=== PATIENT | female | born 1955 | race Caucasian/White ===

== ENCOUNTER 2025-02-01 10:56 | Inpatient (IN) | payer MEDICARE, MEDICAID ==
[2025-02-01 12:14] LABS: BASOPHILS ABSOLUTE AUTO 0.1 K/mm3 (0.0-0.2); BASOPHILS PERCENT AUTO 0.4 % (0.0-1.0); EOSINOPHILS ABSOLUTE AUTO 0.3 K/mm3 (0.0-0.4); EOSINOPHILS PERCENT AUTO 1.9 % (0.0-6.0); HEMATOCRIT 42.1 % (37.0-47.0); HEMOGLOBIN 13.6 gm/dl (12.0-16.0); IMMATURE GRAN ABSOLUTE AUTO 0.05 K/mm3 (0.00-0.05); IMMATURE GRAN PERCENT AUTO 0.4 % (0.0-0.4); LYMPHOCYTES ABSOLUTE AUTO 2.9 K/mm3 (1.0-4.8); LYMPHOCYTES PERCENT AUTO 20.5 % (24.0-44.0); MEAN CORPUSCULAR HGB CONC 32.3 g/dl (32.0-36.0); MEAN CORPUSCULAR VOLUME 92.9 fl (83.0-99.0); MEAN PLATELET VOLUME 10.7 fl (9.4-12.3); MONOCYTES ABSOLUTE AUTO 0.8 K/mm3 (0.0-0.8); MONOCYTES PERCENT AUTO 5.7 % (0.0-8.0); NEUTROPHILS PERCENT AUTO 71.1 % (41.0-71.0); PLATELET COUNT,PLT 212 K/mm3 (150-400); RED BLOOD CELL COUNT 4.53 M/mm3 (4.10-5.30); WHITE BLOOD CELL COUNT,WBC 13.97 K/mm3 (3.9-11.3)
[2025-02-01] MEDS: Ondansetron 4 MG/2 ML SDV IVPUSH ONE (12:43)
[2025-02-01 12:50] LABS: A/G RATIO 0.9 (1-2); ALBUMIN 3.5 g/dl (3.4-5.0); ANION GAP 13.8 (5-15); BILIRUBIN TOTAL 0.3 mg/dL (0.2-1.0); CALCIUM 10.3 mg/dL (8.5-10.1); EST CRCL DRUG DOSING (CG) 37.06 mL/min; POTASSIUM,K 3.8 mEq/L (3.5-5.1); PROTEIN TOTAL,TP 7.3 g/dl (6.4-8.2); TSH 3.013 uIU/mL (0.358-3.74)
[2025-02-01 14:14] LABS: SLIDE REVIEW ABNORMAL SMEAR
[2025-02-01] MEDS ORDERED: Albuterol/Ipratropium 3.0-0.5 MG/3 ML Neb Soln NEB PRN (16:29)
[2025-02-01] MEDS: Furosemide 40 MG/4 ML VIAL IVPUSH ONE (16:31)
[2025-02-01] MEDS ORDERED: Ondansetron 4 MG/2 ML SDV IV PRN (16:32)
[2025-02-01] MEDS ORDERED: Acetaminophen 325 MG Tab PO PRN (16:32)
[2025-02-01] MEDS ORDERED: LORazepam 1 MG Tab PO PRN (16:35)
[2025-02-01] MEDS ORDERED: 50% Dextrose in Water 50 ML Syringe IVPUSH PRN (16:36)
[2025-02-01 18:12] LABS: APPEARANCE,URINE SLT CLOUDY (Clear); BILIRUBIN,URINE 1+ (Negative); COLOR,URINE YELLOW (Yellow); GLUCOSE,URINE NEGATIVE (Negative); KETONES,URINE 1+ (Negative); LEUKOCYTE ESTERASE,URINE 1+ (Negative); NITRITE,URINE NEGATIVE (Negative); OCCULT BLOOD,URINE NEGATIVE (Negative); PROTEIN,URINE 2+ (Negative); UROBILINOGEN,URINE 0.2 (0.2-1.0)
[2025-02-01 18:18] LABS: BARBITURATE SCREEN,URINE NEGATIVE (CUTOFF=200); BENZODIAZEPINES SCREEN,URINE PRESUMPTIVE POSITIVE (CUTOFF=150); BUPRENORPHINE SCREEN,URINE NEGATIVE (CUTOFF=10); METHADONE SCREEN, URINE NEGATIVE (CUTOFF=200); METHAMPHETAMINES SCREEN, URINE NEGATIVE (CUTOFF=500); OXYCODONE SCREEN,URINE NEGATIVE (CUT0FF=100); THC SCREEN,URINE 20 NG/ML NEGATIVE (CUTOFF=50)
[2025-02-01 18:20] LABS: AMPHETAMINES SCREEN, URINE NEGATIVE (CUTOFF=500)
[2025-02-01] MEDS: Insulin Lispro 100 Unit/ML 3 ML KwikPen SUBCUT SCH (18:22)
[2025-02-01 18:35] LABS: RBC,URINE 0-5 /hpf (0-5); WBC,URINE 50-75 /hpf (0-5)
[2025-02-01 18:36] LABS: BACTERIA,URINE FEW /hpf (FEW); MUCUS,URINE FEW /hpf (FEW)
[2025-02-01] MEDS: Potassium Chloride 20 MEQ Tab.ER PO ONE (19:01)
[2025-02-01] MEDS ORDERED: Non-Formulary Medication 1 Each (Memantine Hcl/Donepezil Hcl [Namzaric 28 Mg-10 Mg Capsule PO SCH (21:00)
[2025-02-01] MEDS: Carboxymethylcellulose Sodium 1% Ophth Gel 15 ML Bottle EYEBOTH PRN (21:11)
[2025-02-01] MEDS: QUEtiapine 25 MG Tab PO SCH (21:11)
[2025-02-01] MEDS: LORazepam 2 MG/ML SDV IVPUSH PRN (22:28)
[2025-02-02 04:40] LABS: BASOPHILS ABSOLUTE AUTO 0.1 K/mm3 (0.0-0.2); BASOPHILS PERCENT AUTO 0.4 % (0.0-1.0); EOSINOPHILS ABSOLUTE AUTO 0.1 K/mm3 (0.0-0.4); EOSINOPHILS PERCENT AUTO 0.9 % (0.0-6.0); HEMATOCRIT 41.1 % (37.0-47.0); HEMOGLOBIN 13.3 gm/dl (12.0-16.0); IMMATURE GRAN ABSOLUTE AUTO 0.04 K/mm3 (0.00-0.05); IMMATURE GRAN PERCENT AUTO 0.3 % (0.0-0.4); LYMPHOCYTES ABSOLUTE AUTO 2.9 K/mm3 (1.0-4.8); LYMPHOCYTES PERCENT AUTO 19.9 % (24.0-44.0); MEAN CORPUSCULAR HEMOGLOBIN 29.9 pg (28.0-32.0); MEAN CORPUSCULAR HGB CONC 32.4 g/dl (32.0-36.0); MEAN CORPUSCULAR VOLUME 92.4 fl (83.0-99.0); MEAN PLATELET VOLUME 10.3 fl (9.4-12.3); MONOCYTES ABSOLUTE AUTO 0.8 K/mm3 (0.0-0.8); MONOCYTES PERCENT AUTO 5.6 % (0.0-8.0); NEUTROPHILS ABSOLUTE AUTO 10.5 K/mm3 (1.8-7.7); NEUTROPHILS PERCENT AUTO 72.9 % (41.0-71.0); PLATELET COUNT,PLT 323 K/mm3 (150-400); RED BLOOD CELL COUNT 4.45 M/mm3 (4.10-5.30); WHITE BLOOD CELL COUNT,WBC 14.34 K/mm3 (3.9-11.3)
[2025-02-02 05:06] LABS: A/G RATIO 0.8 (1-2); ALBUMIN 3.4 g/dl (3.4-5.0); ANION GAP 13.3 (5-15); BILIRUBIN TOTAL 0.3 mg/dL (0.2-1.0); BUN/CREATININE RATIO 16.7 (14-18); C-REACTIVE PROTEIN 2.33 mg/dL (<0.30); CREATININE 1.2 mg/dL (0.55-1.02); EST CRCL DRUG DOSING (CG) 30.89 mL/min; MAGNESIUM 1.4 mg/dL (1.8-2.4); PHOSPHORUS 4.3 mg/dL (2.6-4.7); POTASSIUM,K 3.3 mEq/L (3.5-5.1); PROTEIN TOTAL,TP 7.7 g/dl (6.4-8.2)
[2025-02-02 05:44] LABS: HEMOGLOBIN A1C 6.3 %
[2025-02-02] MEDS: Enoxaparin 40 MG/0.4 ML Syringe SUBCUT SCH (08:03)
[2025-02-02] MEDS: Potassium Chloride 10 MEQ in Premix Bag 1 BAG IV SCH (10:57)
[2025-02-02] MEDS: Magnesium Sulf/Wat 4 GM/50 mL 4 GM in Premix Bag 1 BAG IV ONE (10:57)
[2025-02-02] MEDS: Multivitamin Tab PO SCH (11:07)
[2025-02-02] MEDS: LORazepam 1 MG Tab PO SCH (20:59)
[2025-02-03 05:28] LABS: BASOPHILS ABSOLUTE AUTO 0.1 K/mm3 (0.0-0.2); BASOPHILS PERCENT AUTO 0.6 % (0.0-1.0); EOSINOPHILS ABSOLUTE AUTO 0.2 K/mm3 (0.0-0.4); EOSINOPHILS PERCENT AUTO 1.8 % (0.0-6.0); HEMATOCRIT 42.1 % (37.0-47.0); HEMOGLOBIN 13.7 gm/dl (12.0-16.0); IMMATURE GRAN ABSOLUTE AUTO 0.05 K/mm3 (0.00-0.05); IMMATURE GRAN PERCENT AUTO 0.4 % (0.0-0.4); LYMPHOCYTES ABSOLUTE AUTO 3.1 K/mm3 (1.0-4.8); LYMPHOCYTES PERCENT AUTO 24.6 % (24.0-44.0); MEAN CORPUSCULAR HEMOGLOBIN 29.8 pg (28.0-32.0); MEAN CORPUSCULAR HGB CONC 32.5 g/dl (32.0-36.0); MEAN CORPUSCULAR VOLUME 91.7 fl (83.0-99.0); MEAN PLATELET VOLUME 10.5 fl (9.4-12.3); MONOCYTES ABSOLUTE AUTO 0.8 K/mm3 (0.0-0.8); MONOCYTES PERCENT AUTO 6.1 % (0.0-8.0); NEUTROPHILS ABSOLUTE AUTO 8.4 K/mm3 (1.8-7.7); NEUTROPHILS PERCENT AUTO 66.5 % (41.0-71.0); PLATELET COUNT,PLT 316 K/mm3 (150-400); RED BLOOD CELL COUNT 4.59 M/mm3 (4.10-5.30); WHITE BLOOD CELL COUNT,WBC 12.63 K/mm3 (3.9-11.3)
[2025-02-03 05:36] LABS: ANION GAP 14.7 (5-15); C-REACTIVE PROTEIN 1.35 mg/dL (<0.30); CALCIUM 10.6 mg/dL (8.5-10.1); EST CRCL DRUG DOSING (CG) 37.06 mL/min; MAGNESIUM 2.4 mg/dL (1.8-2.4); POTASSIUM,K 3.7 mEq/L (3.5-5.1)
[2025-02-03] MEDS: cefTRIAXone 1 GM Vial IVPUSH SCH ×2 (06:54→08:57)
[2025-02-03] MEDS: Potassium Chloride 20 MEQ Tab.ER PO ONE (09:05)
[2025-02-03] MEDS: Lactated Ringers 1,000 ML IV SCH ×2 (09:10→19:50)
[2025-02-03] MEDS: Folic Acid 1 MG Tab PO SCH (13:27)
[2025-02-03] MEDS: Cholecalciferol (Vitamin D3) 25 MCG Tab PO SCH (13:27)
[2025-02-03] MEDS: LORazepam 2 MG/ML SDV IVPUSH SCH (15:09)
[2025-02-03] MEDS: Cyanocobalamin (Vitamin B12) 1,000 MCG Tab PO SCH (20:14)
[2025-02-03] MEDS: Vitamin B6-pyridOXINE 50 MG Tab PO SCH (20:14)
[2025-02-03] MEDS: Zolpidem 10 MG Tab PO SCH (20:14)
[2025-02-04] MEDS: Labetalol 100 MG/20 ML MDV IVPUSH PRN (00:38)
[2025-02-04 05:35] LABS: BASOPHILS PERCENT AUTO 0.4 % (0.0-1.0); EOSINOPHILS ABSOLUTE AUTO 0.2 K/mm3 (0.0-0.4); EOSINOPHILS PERCENT AUTO 1.4 % (0.0-6.0); HEMATOCRIT 39.2 % (37.0-47.0); HEMOGLOBIN 12.5 gm/dl (12.0-16.0); IMMATURE GRAN ABSOLUTE AUTO 0.04 K/mm3 (0.00-0.05); IMMATURE GRAN PERCENT AUTO 0.4 % (0.0-0.4); LYMPHOCYTES ABSOLUTE AUTO 2.5 K/mm3 (1.0-4.8); LYMPHOCYTES PERCENT AUTO 22.4 % (24.0-44.0); MEAN CORPUSCULAR HGB CONC 31.9 g/dl (32.0-36.0); MONOCYTES ABSOLUTE AUTO 0.5 K/mm3 (0.0-0.8); MONOCYTES PERCENT AUTO 4.5 % (0.0-8.0); NEUTROPHILS ABSOLUTE AUTO 7.8 K/mm3 (1.8-7.7); NEUTROPHILS PERCENT AUTO 70.9 % (41.0-71.0); PLATELET COUNT,PLT 300 K/mm3 (150-400); RED BLOOD CELL COUNT 4.17 M/mm3 (4.10-5.30); WHITE BLOOD CELL COUNT,WBC 11.03 K/mm3 (3.9-11.3)
[2025-02-04 05:56] LABS: ANION GAP 13.4 (5-15); BUN/CREATININE RATIO 19.1 (14-18); C-REACTIVE PROTEIN 0.81 mg/dL (<0.30); CALCIUM 9.5 mg/dL (8.5-10.1); CREATININE 1.1 mg/dL (0.55-1.02); EST CRCL DRUG DOSING (CG) 33.69 mL/min; POTASSIUM,K 4.4 mEq/L (3.5-5.1)
[2025-02-04] MEDS: hydrALAZINE 20 MG/ML SDV IVPUSH PRN (06:35)
[2025-02-04] MEDS: Dextrose 5%-0.45% NaCl 1,000 ML IV SCH (22:20)
[2025-02-06] MEDS: Dextrose 5%-0.45% NaCl 1,000 ML IV SCH (11:31)
[2025-02-06] MEDS ORDERED: Amantadine Soln 50 MG/5 ML UD Cup PO ONE (21:00)
[2025-02-06] MEDS: Amantadine 100 MG Cap PO ONE (21:59)
[2025-02-07] MEDS: Amantadine 100 MG Cap PO SCH (08:05)
[2025-02-07] MEDS: Sennosides/Docusate Sodium 50-8.6 MG Tab PO PRN (11:29)
[2025-02-08] MEDS: Amantadine 100 MG Cap PO SCH (09:35)
[2025-02-08] MEDS: Benzocaine 20% Topical Spray UD MUCMEM ONE (11:36)
[2025-02-08 13:49] LABS: BASOPHILS ABSOLUTE AUTO 0.1 K/mm3 (0.0-0.2); BASOPHILS PERCENT AUTO 0.6 % (0.0-1.0); EOSINOPHILS ABSOLUTE AUTO 0.2 K/mm3 (0.0-0.4); EOSINOPHILS PERCENT AUTO 1.5 % (0.0-6.0); HEMATOCRIT 39.6 % (37.0-47.0); HEMOGLOBIN 13.1 gm/dl (12.0-16.0); IMMATURE GRAN ABSOLUTE AUTO 0.03 K/mm3 (0.00-0.05); IMMATURE GRAN PERCENT AUTO 0.3 % (0.0-0.4); LYMPHOCYTES PERCENT AUTO 20.1 % (24.0-44.0); MEAN CORPUSCULAR HEMOGLOBIN 30.4 pg (28.0-32.0); MEAN CORPUSCULAR HGB CONC 33.1 g/dl (32.0-36.0); MEAN CORPUSCULAR VOLUME 91.9 fl (83.0-99.0); MEAN PLATELET VOLUME 9.9 fl (9.4-12.3); MONOCYTES ABSOLUTE AUTO 0.6 K/mm3 (0.0-0.8); MONOCYTES PERCENT AUTO 5.9 % (0.0-8.0); NEUTROPHILS ABSOLUTE AUTO 7.2 K/mm3 (1.8-7.7); NEUTROPHILS PERCENT AUTO 71.6 % (41.0-71.0); PLATELET COUNT,PLT 306 K/mm3 (150-400); RED BLOOD CELL COUNT 4.31 M/mm3 (4.10-5.30)
[2025-02-08 14:10] LABS: A/G RATIO 0.8 (1-2); ANION GAP 12.1 (5-15); BILIRUBIN TOTAL 0.3 mg/dL (0.2-1.0); BUN/CREATININE RATIO 8.9 (14-18); CREATININE 0.9 mg/dL (0.55-1.02); EST CRCL DRUG DOSING (CG) 41.18 mL/min; POTASSIUM,K 3.1 mEq/L (3.5-5.1); PROTEIN TOTAL,TP 6.9 g/dl (6.4-8.2)
[2025-02-08] MEDS: Potassium Chloride 20 MEQ Tab.ER PO ONE (14:31)
[2025-02-08] MEDS: Sodium Chloride 0.9% 1,000 ML IV SCH (17:03)
[2025-02-09] MEDS ORDERED: Acetaminophen 650 MG Supp RECTAL PRN (07:13)
[2025-02-09] MEDS ORDERED: Sennosides/Docusate Sodium 50-8.6 MG Tab NGTUBE PRN (07:24)
[2025-02-09] MEDS: Cholecalciferol (Vitamin D3) 25 MCG Tab NGTUBE SCH (08:00)
[2025-02-09] MEDS: Insulin Glargine,Human Rec. Analog 100 Units/ML 3 ML Pen SUBCUT SCH (08:01)
[2025-02-09] MEDS: Amantadine 100 MG Cap NGTUBE SCH (08:01)
[2025-02-09] MEDS ORDERED: Multivitamin Tab PO SCH (09:00)
[2025-02-09] MEDS: Folic Acid 50 MG/10 ML MDV IV SCH (09:13)
[2025-02-09] MEDS ORDERED: Vitamin B6-pyridOXINE 50 MG Tab NGTUBE SCH (21:00)
[2025-02-09] MEDS ORDERED: Zolpidem 10 MG Tab NGTUBE SCH (21:00)
[2025-02-09] MEDS ORDERED: Cyanocobalamin (Vitamin B12) 1,000 MCG Tab NGTUBE SCH (21:00)
== END 2025-02-09 14:02 | DRG 189 ==
LOC: JD.ED 10:56 → JD.MS 15:43 → JD.ICU 02-03 13:28 → JD.MS 02-07 07:35
PROVIDERS: ADMIT Student in an Organized Health Care Education/Training Program; ATTEND Family Medicine
DX: R53.1 Weakness (principal); R09.02 Hypoxemia; I10 Essential (primary) hypertension; E11.9 Type 2 diabetes mellitus without complications; J96.01 Acute respiratory failure with hypoxia; Z88.8 Allergy status to other drugs, medicaments and biological substances; I50.31 Acute diastolic (congestive) heart failure; F20.2 Catatonic schizophrenia; N39.0 Urinary tract infection, site not specified; F02.84 Dementia in other diseases classified elsewhere, unspecified severity, with anxiety; I11.0 Hypertensive heart disease with heart failure; F31.9 Bipolar disorder, unspecified; E78.00 Pure hypercholesterolemia, unspecified; K21.9 Gastro-esophageal reflux disease without esophagitis; G30.9 Alzheimer's disease, unspecified; E11.65 Type 2 diabetes mellitus with hyperglycemia; D72.829 Elevated white blood cell count, unspecified; E87.6 Hypokalemia; E83.42 Hypomagnesemia; Z88.0 Allergy status to penicillin; Z79.4 Long term (current) use of insulin; Z79.899 Other long term (current) drug therapy
CPT/HCPCS: 36415; 51701; 51702; 51798; 70450; 70450-26; 70551; 70551-26; 71045; 71045-26; 74018; 74018-26; 80048; 80053; 80143; 80179; 80306; 80307; 81001; 82947; 83036; 83735; 83880; 84100; 84443; 85025; 86140; 87086; 87428-QW; 92610-GN; 93005; 93306; 94761; 94762; 96374; 97110-GP; 97162-GP; 97530-GP; 99285; 99285-25; A9270-GY; C1758; J0360; J0696; J1650; J1815; J1815-GY; J1920; J1940; J2060; J2405; J3475; J3480; J3490; J7030; J7120; Q3014